=== PATIENT | male | born 1945 | race Caucasian/White ===

== ENCOUNTER 2025-09-03 12:10 | Day surgery (SDC) | payer MEDICARE ==
[2025-09-03] MEDS ORDERED: LIDOCAINE HCL 2% 100 MG/5 ML IJ ONE (12:11)
[2025-09-03] MEDS ORDERED: methylPREDNISolone acetate IM ONE (12:11)
[2025-09-03] MEDS ORDERED: Lactated Ringers 1,000 ML IV ONE (13:58)
[2025-09-03] MEDS ORDERED: propofoL IV ONE (14:28)
--- NOTE | 2025-09-03 16:35 | XRAY ---
Indication: Bilateral L4-S1 MBB. Intraoperative fluoroscopy provided for 11 seconds. Single digital spot image submitted for interpretation demonstrates posterior needle tips projecting over expected left and right L4-S1 nerve roots. Correlate with intraoperative findings/report.
--- NOTE | 2025-09-03 16:43 | XRAY ---
11 seconds of fluoroscopy was used in surgery for a bilateral L4-S1 MBB.
== END 2025-09-03 15:03 | disposition home or self-care (01) ==
LOC: SDC-PAIN 12:10
PROVIDERS: ATTEND Psychiatry & Neurology Pain Medicine
DX: M47.817 Spondylosis without myelopathy or radiculopathy, lumbosacral region (principal)